=== PATIENT | male | born 1995 | race Caucasian/White ===

== ENCOUNTER → 2020-09-07 15:03 | Outpatient (BNVA) | payer BC, SELFPAY | PROVIDERS: Visit Provider Urology ==

== ENCOUNTER 2020-10-15 13:04 | Day surgery (SDC) | payer BC, SELFPAY ==
--- NOTE | 2020-10-11 10:57 | HO.ANESPROP2 ---
Documented by User: Urvashi Dotson 10/11/20 10:57 HPI - Anesthesia Eval Consult details Narrative: 25yo M for Circumcision [facility] Past Medical History Medical History Phimosis of penis Surgical History Surgical History (Updated 10/15/20 @ 14:14 by Rosario Mukherjee) History of surgery [place] teeth extracted Social History Social History Patient Tobacco Use Status: Never used Tobacco Are you DNR?: No Advance Directives: No Advance Directives Information Provided: Yes Meds Allergies Allergy/AdvReac Type Severity Reaction Status Date / Time No Known Allergies Allergy Verified 09/07/20 15:32 Home Medications Medication Instructions Recorded Confirmed Last Taken Type No Known Home Meds 10/10/20 10/10/20 Unknown History Exam Exam Date and Time: October 11, 2020 1057 Assessment and Plan Assessment Anesthesia Assessment: Chart Reviewed Documented by User: Rosario Mukherjee 10/15/20 14:17 [facility] Past Medical History Medical History Phimosis of penis Family History Family history of problems with anesthesia: No Surgical History Surgical History (Updated 10/15/20 @ 14:14 by Rosario Mukherjee) History of surgery [place] teeth extracted History of Problems with Anesthesia: No Social History Social History Patient Tobacco Use Status: Never used Tobacco Are you DNR?: No Advance Directives: No Advance Directives Information Provided: Yes Meds Allergies Allergy/AdvReac Type Severity Reaction Status Date / Time No Known Allergies Allergy Verified 09/07/20 15:32 Home Medications Medication Instructions Recorded Confirmed Last Taken Type No Known Home Meds 10/10/20 10/10/20 Unknown History Exam Height,Weight and Vital Signs: Vital Signs Temp Pulse Resp BP Pulse Ox 10/15/20 13:48 98.4 F 87 20 134/79 99 Airway Mallampati Class: II (Narrow high arched palate) TM Dist: >3cm Neck ROM: Full Loose/Missing/Broken Teeth: No Heart: RRR Lungs: CTAB Assessment and Plan Assessment Anesthesia Assessment: Anesthesia Plan Discussed and Chart Reviewed Final Anesthetic Review NPO: Yes ASA Class: I Final Preanesthetic Review: No Changes in Pt Med Stat, Meds/Allgs Chart Reviewed, Consent Obtained/Reviewed and Anes Risks/Benef Reviewed Patient Risk: Low Procedure Risk: Low Assessment/Block/Sedation in SS: Assess/Block/Sedation-SS Anesthetic Plan Anesthetic Plan: GA Disposition: Standard PACU
[2020-10-15 13:21] VITALS: BMI 24.7
[2020-10-15] MEDS: Lactated Ringers 1,000 ML 100 ML IVCONT (13:38)
[2020-10-15] MEDS: levoFLOXacin/D5W 500 MG/100 ML PIGGYBACK 100 MG IV (13:47)
[2020-10-15 13:48] VITALS: BP 134/79; PULSE 87; RESP 20; TEMP 36.9; O2SAT 99; BMI 24.7
--- NOTE | 2020-10-15 14:11 | MHC.SHP ---
Pre-Procedural Eval Section B Chief Complaint: phimosis Details of Present Illness: Phimosis Relevant Family History (Specify if Yes): No Relevant Social History: None Present Medications: see Short Stay Collaborative assessment Medical History: No relevant PMH History of Previous Operations: No relevant previous surgery Allergies: Allergies Allergy/AdvReac Type Severity Reaction Status Date / Time No Known Allergies Allergy Verified 09/07/20 15:32 Review of Systems Sugical H&P ROS: Negative: Constitution, Cardiovascular, Respiratory, Neurological, Psychiatric, Hem-Onc, Allergic/Immunologic, Gastrointestinal, Genitourinary, Musculoskeletal, Integumentary, Endocrine and Eyes/Ears/Nose/Throat Plan Diagnosis/Plan: Unchanged (circumcision) I have reviewed the history and physical and performed a pertinent physical examination on my patient. No changes have occurred unless specified.
[2020-10-15 15:50] VITALS: BP 126/54; PULSE 105; RESP 10; TEMP 36.7; O2SAT 97
--- NOTE | 2020-10-15 15:51 | P.OP_ITS ---
Operative Note Operative Note Date of Service: 10/15/20 Narrative: PreOperative Diagnosis:phimosis Post Operative Diagnosis: phimosis with frenula tethering Procedure: Circumcision with frenulectomy Surgeon: Dr Dejan Tejeda Anesthesia: General Indications for procedure: inability to withdrawal foreskin of penile glans. Risks and benefits including bleeding, scarring, need for revision surgery been discussed. Procedure: After informed consent was verified the patient was brought to the operating room and placed in a supine position. Anesthesia was administered per protocol. The patient was prepped and draped sterile fashion. Safety pause time-out was performed. Antibiotics have been given. The penis was examined and proximal incision marked that lay just proximal to the resting position of the penile sulcus. This was followed around the circumference of the penis. A penile ring block was performed using 1% lidocaine with no epinephrine. Approximately 8 cc. The proximal incision was developed with sharp blade running circumferentially around the penis. The skin was to give a 1 cm separation between the foreskin in the remaining penile shaft skin. the foreskin was unable to be withdrawn. A small dorsal slit was made. The skin was withdrawn. The penis was cleaned with Betadine. The frenulum was seen to be attached with a cord E to the underside of glans. This was released using sharp dissection. The 2 skin edges of frenula line with then reapproximated in the glans with 3 interrupted 4-0 chromic sutures. The distal circumcised incision was made approximately 6 mm from the coronal sulcus. Using clamps the dorsal skin was elevated. Using Metzenbaum scissors the avascular plane was entered and proximal and distal incision were joined. The bridging skin was elevated and clamped. It was then divided using Bovie. The sleeve of tissue was then removed circumferentially around the penis using cautery in order to minimize bleeding. The shaft was then examined in any bleeding areas were controlled. More local anesthetic was injected into the plane beneath avascular plane to help with po stprocedure pain management. The skin edges after they were appropriately examined low reapposed. A 4-0 chromic suture was placed at 12:00 o'clock and 06:00 o'clock positions. Interrupted 4-0 was then placed the 09:00 o'clock and 3 o'clock position. Each quadrant was then filled with 3 sutures using 4-0 chromic. At the completion of the procedure there was adequate hemostasis. The incision was washed and dried. Antibiotic cream was applied to the incision. A Yamil wrap was applied followed by a Coban dressing. Xeroform gauze had been used to cover antibiotic ointment. He tolerated the procedure well and was extubated in the room and transferred in stable condition to the recovery area. Pathology: Foreskin Drains: none
[2020-10-15 15:55] VITALS: BP 140/64; PULSE 105; RESP 14; O2SAT 99
[2020-10-15 16:00] VITALS: BP 149/88; PULSE 99; RESP 16; O2SAT 98
[2020-10-15 16:05] VITALS: BP 141/89; PULSE 98; RESP 16; O2SAT 98
[2020-10-15] MEDS: Ketorolac Tromethamine 15 MG/ML VIAL IVPUSH (16:05)
[2020-10-15 16:20] VITALS: BP 152/77; PULSE 94; RESP 16; TEMP 36.7; O2SAT 97
== END 2020-10-15 16:54 | disposition home or self-care (01) ==
PROVIDERS: Visit Provider Urology
PROC: (CPT 54161; principal; 2020-10-15 14:40)
DX: N47.1 Phimosis (principal)
CPT/HCPCS: 54161; 88304; J1100; J1885; J1956; J2250; J2405; J3010

== ENCOUNTER → 2020-11-08 15:34 | Outpatient (BNVA) | payer BC, SELFPAY | PROVIDERS: Visit Provider Urology ==